=== PATIENT | male | born 1990 | race Caucasian/White ===

== ENCOUNTER 2018-05-24 12:53 | Emergency (ER) | payer MEDICAID ==
--- NOTE | 2018-05-24 13:22 | EDM.PDOC ---
ED HPI GENERAL MEDICAL PROBLEM - General Chief Complaint: Flank Pain Stated Complaint: SHARP LT SIDE PAIN Time Seen by Provider: 05/24/18 13:22 Source of Information: Reports: RN Notes Reviewed History Limitations: Reports: No Limitations - History of Present Illness INITIAL COMMENTS - FREE TEXT/NARRATIVE: Khoa presents today for complaints of LLQ and left flank pain since this morning. Pain worsens with movement is constant and sharp. Left Flank Pain Score (Numeric/FACES): 3 - Related Data Allergies Allergy/AdvReac Type Severity Reaction Status Date / Time No Known Allergies Allergy Verified 07/08/15 10:41 Home Meds: Home Meds Cholecalciferol (Vitamin D3) [Vitamin D3] 5,000 unit PO DAILY 05/24/18 [History] Citalopram [Citalopram HBr] 40 mg PO DAILY 05/24/18 [History] Lisdexamfetamine [Vyvanse] 30 mg PO DAILY 05/24/18 [History] RX: Fluconazole [Diflucan] 150 mg PO ASDIRECTED 05/24/18 [History] RX: Ketoconazole [Nizoral 2% Shampoo] 1 dose TOP ASDIRECTED 05/24/18 [History] RX: Zolpidem Tartrate 10 mg PO BEDTIME PRN 05/24/18 [History] Past Medical History - Past Health History Medical/Surgical History: Denies Medical/Surgical History Gastrointestinal History: Reports: Chronic Diarrhea Psychiatric History: Reports: Anxiety, Depression Dermatologic History: Reports: Other (See Below) Other Dermatologic History: tiea versicolor Social & Family History - Tobacco Use Smoking Status *Q: Never Smoker - Caffeine Use Caffeine Use: Reports: Coffee, Soda - Recreational Drug Use Recreational Drug Use: Yes Recreational Drug Type: Reports: Marijuana/Hashish ED ROS GENERAL - Review of Systems Review Of Systems: See Below Constitutional: Reports: Other (Noted patient drinks budweiser beer 2-3 times per week. Caffiene intake 1 pot of coffee per day. ). Denies: Fever, Chills, Malaise, Weakness HEENT: Reports: No Symptoms Respiratory: Reports: No Symptoms Cardiovascular: Reports: No Symptoms Endocrine: Reports: No Symptoms GI/Abdominal: Reports: Abdominal Pain, Diarrhea, Nausea, Stool Incontinence, Other (He reports chronic diarrhea for 7 years with incontinence. He reports up to 15 stools per day. He states he has been seeing Dr. Sánchez and has a colonoscopy pending on 05/31/18.). Denies: Black Stool, Bloody Stool, Constipation, Distension, Hematemesis, Hematochezia, Vomiting : Reports: Flank Pain. Denies: Hematuria, Pain, Urgency, Urinary Retention Musculoskeletal: Reports: No Symptoms Skin: Reports: No Symptoms Neurological: Reports: No Symptoms Psychiatric: Reports: No Symptoms Hematologic/Lymphatic: Reports: No Symptoms Immunologic: Reports: No Symptoms ED EXAM, GI/ABD - Physical Exam Exam: See Below Text/Narrative:: Khoa is an alert and oriented 28 year old male presenting with Left flank, LUQ , LLQ abdominal pain since this morning. Exam Limited By: No Limitations General Appearance: Alert, WD/WN, Mild Distress Eyes: Bilateral: Normal Appearance, EOMI Ears: Normal External Exam, Normal Canal, Hearing Grossly Normal, Normal TMs Nose: Normal Inspection, Normal Mucosa, No Blood Throat/Mouth: Normal Inspection, Normal Lips, Normal Gums, Normal Oropharynx, Normal Voice, No Airway Compromise Head: Atraumatic, Normocephalic Neck: Normal Inspection, Supple, Non-Tender, Full Range of Motion. No: Lymphadenopathy (R), Lymphadenopathy (L) Respiratory/Chest: No Respiratory Distress, Lungs Clear, Normal Breath Sounds, No Accessory Muscle Use, Chest Non-Tender Cardiovascular: Normal Peripheral Pulses, Regular Rate, Rhythm, No Edema, No Murmur, No Rub GI/Abdominal Exam: Normal Bowel Sounds, Soft, No Organomegaly, No Distention, No Mass, Tender (Tenderness noted to LUQ, LLQ, Left flank). No: Guarding, Rigid , Rebound Back Exam: Normal Inspection, Full Range of Motion. No: CVA Tenderness (R), CVA Tenderness (L) Extremities: Normal Inspection, Normal Range of Motion, Non-Tender, No Pedal Edema, Normal Capillary Refill Neurological: Alert, Oriented, CN II-XII Intact, Normal Cognition, Normal Gait, Normal Reflexes, No Motor/Sensory Deficits Psychiatric: Normal Affect, Normal Mood Skin Exam: Warm, Dry, Intact, Normal Color, No Rash Lymphatic: No Adenopathy Course - Vital Signs Last Recorded V/S: Last Vital Signs Temp Pulse 77 05/24/18 15:14 Resp 16 05/24/18 15:14 BP 147/76 H 05/24/18 15:14 Pulse Ox 98 05/24/18 15:14 - Orders/Labs/Meds Orders: Active Orders 24 hr Category Date Time Status Abdomen Pelvis w wo Cont [CT] Stat Exams 05/24/18 14:55 Taken Saline Lock Insert [OM.PC] Routine Oth 05/24/18 13:37 Ordered Bladder scan showed 20ml present. Labs: Laboratory Tests 05/24/18 05/24/18 05/24/18 Range/Units 13:49 13:49 14:32 WBC 4.4 L (4.5-11.0) K/uL RBC 4.76 (4.30-5.90) M/uL Hgb 14.6 (12.0-15.0) g/dL Hct 41.0 (40.0-54.0) % MCV 86 (80-98) fL MCH 31 (27-31) pg MCHC 36 (32-36) % Plt Count 259 (150-400) K/uL Neut % (Auto) 51 (36-66) % Lymph % (Auto) 35 (24-44) % Butler % (Auto) 13 H (2-6) % Eos % (Auto) 1 L (2-4) % Baso % (Auto) 0 (0-1) % Sodium 138 L (140-148) mmol/L Potassium 4.2 (3.6-5.2) mmol/L Chloride 102 (100-108) mmol/L Carbon Dioxide 27 (21-32) mmol/L Anion Gap 13.2 (5.0-14.0) mmol/L BUN 16 (7-18) mg/dL Creatinine 1.3 (0.8-1.3) mg/dL Est Cr Clr Drug Dosing TNP Estimated GFR (MDRD) > 60 (>60) Glucose 90 (74-106) mg/dL Calcium 9.1 (8.5-10.1) mg/dL Total Bilirubin 1.3 H (0.2-1.0) mg/dL AST 25 (15-37) U/L ALT 33 (12-78) U/L Alkaline Phosphatase 57 (46-116) U/L Total Protein 7.7 (6.4-8.2) g/dL Albumin 4.0 (3.4-5.0) g/dL Globulin 3.7 H (2.3-3.5) g/dL Albumin/Globulin Ratio 1.1 L (1.2-2.2) Urine Color Yellow Urine Appearance Slightly cloudy Urine pH 6.0 (4.5-8.0) Ur Specific [place] 1.025 (1.008-1.030) Urine Protein Negative (NEGATIVE) mg/dL Urine Glucose (UA) Normal (NEGATIVE) mg/dL Urine Ketones Negative (NEGATIVE) mg/dL Urine Occult Blood Negative (NEGATIVE) Urine Nitrite Negative (NEGAITVE) Urine Bilirubin Negative (NEGATIVE) Urine Urobilinogen Normal (NORMAL) mg/dL Ur Leukocyte Esterase Negative (NEGATIVE) Urine RBC Not seen (0-5) Urine WBC 0-5 (0-5) Ur Epithelial Cells Not seen Amorphous Sediment Few Urine Bacteria Not seen Urine Mucus Many Patient lab work reviewed with him, all his questions answered. We will do a CT of abdomen and pelvis with and without contrast due to nature of pain and chronic diarrhea. Radiologist and Dr. Aparicio in agreement with plan. Meds: Medications Discontinued Medications Generic Name Dose Route Start Last Admin Trade Name Freq PRN Reason Stop Dose Admin Hydromorphone HCl 0.5 mg 05/24/18 13:37 05/24/18 14:05 Dilaudid IVPUSH 05/24/18 13:38 0.5 mg ONETIME ONE Administration Sodium Chloride 1,000 mls @ 1,000 mls/hr 05/24/18 13:37 05/24/18 14:01 Normal Saline IV 05/24/18 14:36 1,000 mls/hr .BOLUS ONE Administration Sodium Chloride 85 mls @ 3 mls/sec 05/24/18 15:26 05/24/18 15:28 Normal Saline IV 05/24/18 15:27 3 mls/sec ONETIME ONE Administration Iopamidol 150 ml 05/24/18 15:30 05/24/18 15:28 Isovue-300 (61%) IV 150 ml . DIRECTED BRIAN Administration Ondansetron HCl 4 mg 05/24/18 13:37 05/24/18 14:03 Zofran IVPUSH 05/24/18 13:38 4 mg ONETIME ONE Administration Sodium Chloride 10 ml 05/24/18 13:37 Saline Flush FLUSH ASDIRECTED PRN Keep Vein Open - Radiology Interpretation CT Results Date: 05/24/18 (CT abdomen and pelvis with and without contrast impression: No acute abnormality of abdomen and pelvis. Scattered colonic diverticulosis with no evidence of acute diverticulitis. ) - Re-Assessments/Exams Free Text/Narrative Re-Assessment/Exam: 05/24/18 15:50 CT scan reviewed with patient, all his questions answered. He will be discharged to home. Departure - Departure Time of Disposition: 16:26 Disposition: Home, Self-Care 01 Condition: Good Clinical Impression: Abdominal pain, Diverticulosis - Discharge Information *PRESCRIPTION DRUG MONITORING PROGRAM REVIEWED*: No *COPY OF PRESCRIPTION DRUG MONITORING REPORT IN PATIENT J LUIS: No Instructions: Abdominal Pain, Adult Referrals: Marjan Sánchez MD [Primary Care Provider] - Forms: ED Department Discharge Additional Instructions: You have been evaluated and treated for abdominal/left flank pain. CT scans does not show any acute findings. The CT scan does show that you have diverticulosis. It would be best for you to cut down on your caffeine intake. Keep yourself hydrated with water and powerade. Stop use of alcohol. Eat a regular diet. Follow up with your scheduled colonoscopy. Follow up with your primary provider in 7 to 14 days for a recheck. Return to the emergency room for worsening, issues or concerns. - My Orders Last 24 Hours: My Active Orders 05/24/18 13:37 Saline Lock Insert [OM.PC] Routine 05/24/18 14:55 Abdomen Pelvis w wo Cont [CT] Stat - Assessment/Plan Last 24 Hours: My Active Orders 05/24/18 13:37 Saline Lock Insert [OM.PC] Routine 05/24/18 14:55 Abdomen Pelvis w wo Cont [CT] Stat Plan: Patient evaluated and treated for abdominal/left flank pain. CT scans does not show any acute findings. The CT scan does show diverticulosis. It would be best to cut down on your caffeine intake. Keep hydrated with water and powerade. Stop use of alcohol. Eat a regular diet. Follow up with scheduled colonoscopy. Follow up with primary provider in 7 to 14 days for a recheck. Return to the emergency room for worsening, issues or concerns.
[2018-05-24] MEDS ORDERED: Sodium Chloride 0.9% 10 ML Syringe FLUSH PRN (13:37)
[2018-05-24] MEDS ORDERED: Ondansetron 4 MG/2 ML SDV IVPUSH ONE (13:37)
[2018-05-24] MEDS ORDERED: HYDROmorphone 0.5 MG/0.5 ML Syringe IVPUSH ONE (13:37)
[2018-05-24] MEDS ORDERED: Sodium Chloride 0.9% 1,000 ML IV ONE (13:37)
[2018-05-24 15:16] VITALS: BP 147/76
[2018-05-24] MEDS ORDERED: Iopamidol 612 MG/ML 150 ML Bottle IV SCH (15:30)
== END 2018-05-24 16:49 | disposition home or self-care (01) ==
LOC: JP.ED 12:53
DX: K57.90 Diverticulosis of intestine, part unspecified, without perforation or abscess without bleeding (principal); F41.9 Anxiety disorder, unspecified; F32.9 Major depressive disorder, single episode, unspecified; Z79.899 Other long term (current) drug therapy
CPT/HCPCS: 36415; 74178; 80053; 81001; 85025; 96361; 96374; 96375; 99284; J1170; J2405; J7030

== ENCOUNTER 2018-05-31 06:25 | Day surgery (SDC) | payer MEDICAID ==
[2018-05-31] MEDS ORDERED: Lactated Ringers 1,000 ML IV SCH (07:00)
[2018-05-31] MEDS ORDERED: Midazolam 1 MG/ML 2 ML SDV ONE (07:29)
[2018-05-31] MEDS ORDERED: fentaNYL 100 MCG/2 ML SDV ONE (07:29)
[2018-05-31] MEDS ORDERED: Propofol 200 MG/20 ML SDV ONE ×2 (07:29→07:59)
--- NOTE | 2018-05-31 08:42 | OR ---
DATE OF PROCEDURE: 05/31/2018 PREOPERATIVE DIAGNOSIS: Chronic diarrhea. POSTOPERATIVE DIAGNOSIS: Chronic diarrhea. PROCEDURE PERFORMED: Colonoscopy to the cecum with random colonic biopsies. ANESTHESIA: IV anesthesia with monitored anesthesia care. INDICATIONS: This 28-year-old white male is referred for a colonoscopy because of chronic diarrhea. He says he has had diarrhea on and off for 7 years. I counseled him for the procedure including risks and alternatives and gave his informed consent to proceed. DESCRIPTION OF PROCEDURE: The patient was placed in the left lateral decubitus position. IV anesthesia was administered by the Anesthesia Service. Time-out was held. A rectal exam was performed, which was unremarkable. The flexible video Olympus colonoscope was introduced through his anus, up his rectum, out his colon and all the way to the cecum. Once the cecum was reached, the scope was slowly withdrawn examining the mucosa throughout. No mucosal abnormalities were noted. We did obtain random colonic biopsies throughout his entire colon. The scope was retroflexed in the rectum with the distal rectum appearing unremarkable. The scope was straightened and removed. He tolerated the procedure well. Ken Toro MD /[id number]
[2018-05-31 09:34] VITALS: BP 122/69
== END 2018-05-31 09:30 | disposition home or self-care (01) ==
LOC: JP.SDS 06:25
PROVIDERS: ATTEND Surgery
DX: K52.9 Noninfective gastroenteritis and colitis, unspecified (principal)
CPT/HCPCS: 45380; J2250; J2704; J3010; J7120; 88305

== ENCOUNTER 2018-10-14 11:31 | Emergency (ER) | payer MEDICAID ==
[2018-10-14 11:45] VITALS: BP 169/54
--- NOTE | 2018-10-14 12:07 | EDM.PDOC ---
ED HPI GENERAL MEDICAL PROBLEM - General Chief Complaint: Gastrointestinal Problem Stated Complaint: RED BLOODY DIARRHEA/ Time Seen by Provider: 10/14/18 11:56 Source of Information: Reports: Patient, RN Notes Reviewed History Limitations: Reports: No Limitations - History of Present Illness INITIAL COMMENTS - FREE TEXT/NARRATIVE: 28-year-old gentleman presents emergency department today with bright red blood per rectum, he recently had a colonoscopy about 3 months ago with biopsies, he states no pathology was discovered, does have a history of irritable bowel syndrome. He does admit to constipation he did have a hard stool this morning which was painful and that's when he noticed the blood little bit of blood in the stool as well as when he wiped. He has no symptoms of lightheadedness or feeling like he is given a pass out Abdominal Pain Score (Numeric/FACES): 3 - Related Data Allergies Allergy/AdvReac Type Severity Reaction Status Date / Time No Known Allergies Allergy Verified 10/14/18 11:40 Home Meds: Home Meds Cholecalciferol (Vitamin D3) [Vitamin D3] 5,000 unit PO DAILY 05/24/18 [History] Citalopram [Citalopram HBr] 40 mg PO DAILY 05/24/18 [History] Zolpidem Tartrate 10 mg PO BEDTIME PRN 05/24/18 [History] Selenium Sulfide [Selenium Sulfide 2.5% Lotion] 10 ml TOP WEEKLY 05/29/18 [ History] Divalproex Sodium [Divalproex Sodium ER] 500 mg PO DAILY 05/31/18 [History] Ibuprofen [Motrin] 1,000 mg PO ASDIRECTED 05/31/18 [History] Ondansetron [Zofran ODT] 4 mg PO Q6H PRN #7 tab.dis 10/09/18 [Rx] Past Medical History Cardiovascular History: Reports: Heart Murmur Gastrointestinal History: Reports: Chronic Diarrhea, GERD Musculoskeletal History: Reports: Other (See Below) Other Musculoskeletal History: scolosis Neurological History: Reports: Concussion Psychiatric History: Reports: Anxiety, Depression, Mood Swings, Panic Attack Endocrine/Metabolic History: Reports: Obesity/BMI 30+ Hematologic History: Reports: Other (See Below) Other Hematologic History: vit d Dermatologic History: Reports: Other (See Below) Other Dermatologic History: tiea versicolor - Past Surgical History Cardiovascular Surgical History: Reports: None GI Surgical History: Reports: Colonoscopy, EGD Endocrine Surgical History: Reports: None Neurological Surgical History: Reports: None Musculoskeletal Surgical History: Reports: None Dermatological Surgical History: Reports: None Social & Family History - Family History Family Medical History: Noncontributory - Tobacco Use Smoking Status *Q: Former Smoker Used Tobacco, but Quit: No Month/Year Tobacco Last Used: 2015 Second Hand Smoke Exposure: No - Caffeine Use Caffeine Use: Reports: None - Alcohol Use Days Per Week of Alcohol Use: 2 Number of Drinks Per Day: 12 Total Drinks Per Week: 24 - Recreational Drug Use Recreational Drug Use: Yes Drug Use in Last 12 Months: Yes Recreational Drug Type: Reports: Marijuana/Hashish Recreational Drug Use Frequency: Daily ED ROS GENERAL - Review of Systems Review Of Systems: See Below Constitutional: Reports: No Symptoms HEENT: Reports: No Symptoms Respiratory: Reports: No Symptoms Cardiovascular: Reports: No Symptoms GI/Abdominal: Reports: Bloody Stool ED EXAM, GI/ABD - Physical Exam Exam: See Below Exam Limited By: No Limitations General Appearance: Alert, WD/WN, No Apparent Distress Respiratory/Chest: No Respiratory Distress Rectal (Males) Exam: Normal Rectal Tone, Rectal Fissure, Tenderness. No: Bloody Stool, Hemorrhoids Course - Vital Signs Last Recorded V/S: Last Vital Signs Temp 97.3 F 10/14/18 11:44 Pulse 74 10/14/18 11:44 Resp 16 10/14/18 11:44 BP 169/54 H 10/14/18 11:44 Pulse Ox 100 10/14/18 11:44 Departure - Departure Time of Disposition: 12:06 Disposition: Home, Self-Care 01 Condition: Good Clinical Impression: Rectal fissure - Discharge Information Referrals: PCP,None [Primary Care Provider] - Additional Instructions: Increase fruit and vegetable intake, recommend stool softeners and sitz baths, Please followup with your primary care provider in 5-7 days if not better, please call return to the emergency department with worsening of symptoms. - Assessment/Plan Plan: Assessment Acuity = acute Site and laterality = small rectal fissure Etiology = secondary to constipation and hard stool Manifestations = none Location of injury = Home Lab values = none Plan elected treat empirically sits baths and work on his constipation, he is going to use stool softeners push the fruits and vegetables, follow-up with primary care 5-7 days if no improvement This note was dictated using [employer] voice recognition software please call with any questions on syntax or grammar.
== END 2018-10-14 12:14 | disposition home or self-care (01) ==
LOC: JP.ED 11:31
DX: K60.2 Anal fissure, unspecified (principal); F41.9 Anxiety disorder, unspecified; F32.9 Major depressive disorder, single episode, unspecified; Z87.891 Personal history of nicotine dependence; Z79.899 Other long term (current) drug therapy
CPT/HCPCS: 99284

== ENCOUNTER 2018-10-29 11:38 | Emergency (ER) | payer MEDICAID ==
[2018-10-29 12:25] VITALS: BP 132/69
[2018-10-29] MEDS ORDERED: Ketorolac 60 MG/2 ML SDV IM ONE (13:09)
[2018-10-29] MEDS ORDERED: Cyclobenzaprine 10 MG Tab PO ONE (13:09)
--- NOTE | 2018-10-29 13:13 | EDM.PDOC ---
ED HPI GENERAL MEDICAL PROBLEM - General Chief Complaint: Back Pain or Injury Stated Complaint: FELL DOWN STAIRS Time Seen by Provider: 10/29/18 13:06 Source of Information: Reports: Patient, Family, RN Notes Reviewed History Limitations: Reports: No Limitations - History of Present Illness INITIAL COMMENTS - FREE TEXT/NARRATIVE: 28-year-old gentleman presents to the emergency department today following a fall at home, he was shoveling the steps when he slipped on the ice and then fell down several steps landing initially on his buttocks and then sliding to the bottom of the stairs he is complaining of low back pain as well as mid thoracic pain is also muscle aches he states he might of had a loss of consciousness very briefly some 5 seconds no nausea vomiting, Back Pain Score (Numeric/FACES): 8 - Related Data Allergies Allergy/AdvReac Type Severity Reaction Status Date / Time No Known Allergies Allergy Verified 10/29/18 12:58 Home Meds: Home Meds Cholecalciferol (Vitamin D3) [Vitamin D3] 5,000 unit PO DAILY 05/24/18 [History] Citalopram [Citalopram HBr] 40 mg PO DAILY 05/24/18 [History] Zolpidem Tartrate 10 mg PO BEDTIME PRN 05/24/18 [History] Selenium Sulfide [Selenium Sulfide 2.5% Lotion] 10 ml TOP WEEKLY 05/29/18 [ History] Divalproex Sodium [Divalproex Sodium ER] 500 mg PO DAILY 05/31/18 [History] Ibuprofen [Motrin] 1,000 mg PO ASDIRECTED 05/31/18 [History] Ondansetron [Zofran ODT] 4 mg PO Q6H PRN #7 tab.dis 10/09/18 [Rx] Past Medical History Cardiovascular History: Reports: Heart Murmur Gastrointestinal History: Reports: Chronic Diarrhea, GERD Musculoskeletal History: Reports: Other (See Below) Other Musculoskeletal History: scolosis Neurological History: Reports: Concussion Psychiatric History: Reports: Anxiety, Depression, Mood Swings, Panic Attack Endocrine/Metabolic History: Reports: Obesity/BMI 30+ Hematologic History: Reports: Other (See Below) Other Hematologic History: vit d Dermatologic History: Reports: Other (See Below) Other Dermatologic History: tiea versicolor - Past Surgical History GI Surgical History: Reports: Colonoscopy, EGD Social & Family History - Family History Family Medical History: Noncontributory - Tobacco Use Smoking Status *Q: Never Smoker - Caffeine Use Caffeine Use: Reports: None - Recreational Drug Use Recreational Drug Use: Yes Recreational Drug Type: Reports: Marijuana/Hashish Recreational Drug Use Frequency: Daily ED ROS GENERAL - Review of Systems Review Of Systems: See Below Constitutional: Reports: No Symptoms HEENT: Reports: No Symptoms Respiratory: Reports: No Symptoms Cardiovascular: Reports: No Symptoms GI/Abdominal: Denies: Nausea, Vomiting : Reports: No Symptoms Musculoskeletal: Reports: Neck Pain, Shoulder Pain, Back Pain, Muscle Stiffness Skin: Reports: No Symptoms Neurological: Reports: No Symptoms ED EXAM,LOWER BACK PAIN/INJURY - Physical Exam Exam: See Below Text/Narrative:: Examination of the spine he is tender approximately T5-T6 region spinally and tender L4-L5 region spinally no significant paraspinal tenderness, is no tenderness shoulders elbows wrists bilaterally pelvic rock's is negative no tenderness to the knees or ankles bilaterally Exam Limited By: No Limitations General Appearance: Alert, WD/WN, No Apparent Distress Neck: Normal Inspection, Supple, Full Range of Motion, Tender Lateral. No: Tender Midline Respiratory/Chest: No Respiratory Distress, Lungs Clear, Normal Breath Sounds, No Accessory Muscle Use Cardiovascular: Regular Rate, Rhythm, No Murmur GI/Abdominal: Soft, Non-Tender Course - Vital Signs Last Recorded V/S: Last Vital Signs Temp 95.4 F 10/29/18 12:57 Pulse 56 L 10/29/18 12:57 Resp 16 10/29/18 12:57 BP 132/69 10/29/18 12:57 Pulse Ox 98 10/29/18 12:57 - Orders/Labs/Meds Orders: Active Orders 24 hr Category Date Time Status Lumbar Spine 2 or 3V [CR] Stat Exams 10/29/18 13:08 Taken Thoracic Spine 3V [CR] Stat Exams 10/29/18 13:08 Taken Meds: Medications Discontinued Medications Generic Name Dose Route Start Last Admin Trade Name Freq PRN Reason Stop Dose Admin Cyclobenzaprine HCl 10 mg 10/29/18 13:09 10/29/18 13:25 Flexeril PO 10/29/18 13:10 10 mg ONETIME ONE Administration Fentanyl 50 mcg 10/29/18 14:27 10/29/18 14:34 Sublimaze IM 10/29/18 14:28 50 mcg ONETIME ONE Administration Ketorolac Tromethamine 60 mg 10/29/18 13:09 10/29/18 13:25 Toradol IM 10/29/18 13:10 60 mg ONETIME ONE Administration Departure - Departure Time of Disposition: 14:58 Disposition: Home, Self-Care 01 Clinical Impression: Contusion of back Qualifiers: Encounter type: initial encounter Laterality: unspecified laterality Qualified Code(s): S20.229A - Contusion of unspecified back wall of thorax, initial encounter - Discharge Information Referrals: Mini Quesada MD [Primary Care Provider] - Forms: ED Department Discharge Additional Instructions: Use ibuprofen for baseline pain control, use hydrocodone for breakthrough pain, Please followup with your primary care provider in 3-5 days if not better, please call return to the emergency department with worsening of symptoms. - My Orders Last 24 Hours: My Active Orders 10/29/18 13:08 Lumbar Spine 2 or 3V [CR] Stat Thoracic Spine 3V [CR] Stat - Assessment/Plan Last 24 Hours: My Active Orders 10/29/18 13:08 Lumbar Spine 2 or 3V [CR] Stat Thoracic Spine 3V [CR] Stat Plan: Assessment Acuity = acute Site and laterality = contusion back lumbar thorax Etiology = secondary to a fall Manifestations = pain Location of injury = Home Lab values = lumbar and thoracic films I did review films myself I cannot appreciate any acute process, the official read from radiology is pending Plan He had good relief with combination fentanyl Toradol plan is discharge home with hydrocodone 5/325 one tab by mouth 3 times a day when necessary total #10 follow-up primary care 3-5 days if not better This note was dictated using [employer] recognition software please call with any questions on syntax or grammar.
[2018-10-29] MEDS ORDERED: fentaNYL 100 MCG/2 ML SDV IM ONE (14:27)
--- NOTE | 2018-10-29 15:05 | CRLCR ---
HISTORY: Status post fall with L4 pain. COMPARISON: Report of the previous CT of the abdomen and pelvis from 05/24/2018 FINDINGS: The lumbar spine was examined in the standing position with AP and lateral views for a total of two views. There is minimal scoliosis of the upper lumbar spine convex towards the left with the apex at the L2 level. There is no sign of fracture or subluxation. The vertebral bodies are normal in height and they are in anatomic alignment. The disc spaces are normal in height as well. The visualized bony pelvis and bowel gas pattern are normal in appearance. IMPRESSION: Minimal scoliosis of the upper lumbar spine convex towards the left. Otherwise normal lumbar spine. Dictated by Hakan De La Fuente MD @ Oct 29 2018 3:02PM Signed by Dr. Hakan De La Fuente @ Oct 29 2018 3:04PM
--- NOTE | 2018-10-29 15:07 | CRLCR ---
INDICATION: Pain after fall COMPARISON: None available. TECHNIQUE: AP and lateral views of the thoracic spine were obtained along with a cross-table swimmer`s view of the cervicothoracic junction for a total of three views. FINDINGS: There is no sign of fracture or subluxation. The intervertebral discs are normal in height. The vertebral bodies are normal in height and are in anatomic alignment. The visualized portions of the chest are normal in appearance. IMPRESSION: Normal thoracic spine. Dictated by Hakan De La Fuente MD @ Oct 29 2018 3:04PM Signed by Dr. Hakan De La Fuente @ Oct 29 2018 3:05PM
== END 2018-10-29 15:18 | disposition home or self-care (01) ==
LOC: JP.ED 11:38
DX: S20.229A Contusion of unspecified back wall of thorax, initial encounter (principal); K21.9 Gastro-esophageal reflux disease without esophagitis; F41.9 Anxiety disorder, unspecified; F32.9 Major depressive disorder, single episode, unspecified; Z79.899 Other long term (current) drug therapy; W00.1XXA Fall from stairs and steps due to ice and snow, initial encounter
CPT/HCPCS: 72072; 72100; 96372; 99284-25; A9270-GY; J1885; J3010

== ENCOUNTER 2018-11-01 10:45 | Emergency (ER) | payer MEDICAID ==
[2018-11-01] MEDS ORDERED: HYDROmorphone 1 MG/ML Syringe IM ONE (11:36)
--- NOTE | 2018-11-01 11:49 | EDM.PDOC ---
ED HPI GENERAL MEDICAL PROBLEM - General Chief Complaint: Back Pain or Injury Stated Complaint: SENT FROM CLINIC Time Seen by Provider: 11/01/18 11:20 Source of Information: Reports: Patient, Family History Limitations: Reports: No Limitations - History of Present Illness INITIAL COMMENTS - FREE TEXT/NARRATIVE: 28-year-old male who slipped on the stairs 5 days ago injuring his back and neck. He has been seen 3 times since, yesterday had a CT of his neck which was negative. Thoracic and lumbar spine done 3 days ago was normal. He went back into the clinic today because he is in such severe pain, has now developed abdominal pain and vomiting. He took his last Vicodin last night. The provider at the clinic felt that he may have some meningeal irritation so sent him to the emergency room. Onset: Sudden (Pain started after falling 4 days ago) Severity: Severe (Patient is tearful) Associated Symptoms: Reports: Fever/Chills, Nausea/Vomiting, Weakness. Denies: Confusion, Cough, Shortness of Breath Neck Pain Score (Numeric/FACES): 8 Abdomen Pain Score (Numeric/FACES): 4 - Related Data Allergies Allergy/AdvReac Type Severity Reaction Status Date / Time No Known Allergies Allergy Verified 11/01/18 11:17 Home Meds: Home Meds Cholecalciferol (Vitamin D3) [Vitamin D3] 5,000 unit PO DAILY 05/24/18 [History] Citalopram [Citalopram HBr] 40 mg PO DAILY 05/24/18 [History] Zolpidem Tartrate 10 mg PO BEDTIME PRN 05/24/18 [History] Selenium Sulfide [Selenium Sulfide 2.5% Lotion] 10 ml TOP WEEKLY 05/29/18 [ History] Divalproex Sodium [Divalproex Sodium ER] 500 mg PO DAILY 05/31/18 [History] Ondansetron [Zofran ODT] 4 mg PO Q6H PRN #7 tab.dis 10/09/18 [Rx] Hydrocodone/Acetaminophen [Vicodin 5-300 mg Tablet] 1 tab PO Q6HR PRN 11/01/18 [ History] Past Medical History Cardiovascular History: Reports: Heart Murmur Gastrointestinal History: Reports: Chronic Diarrhea, GERD Musculoskeletal History: Reports: Other (See Below) Other Musculoskeletal History: scolosis Neurological History: Reports: Concussion Psychiatric History: Reports: Anxiety, Depression, Mood Swings, Panic Attack Endocrine/Metabolic History: Reports: Obesity/BMI 30+ Hematologic History: Reports: Other (See Below) Other Hematologic History: vit d Dermatologic History: Reports: Other (See Below) Other Dermatologic History: tiea versicolor - Past Surgical History Head Surgeries/Procedures: Reports: None GI Surgical History: Reports: Colonoscopy, EGD Social & Family History - Family History Family Medical History: Noncontributory - Tobacco Use Smoking Status *Q: Never Smoker - Caffeine Use Caffeine Use: Reports: None - Recreational Drug Use Recreational Drug Use: Yes Recreational Drug Type: Reports: Marijuana/Hashish Recreational Drug Use Frequency: Weekly ED ROS GENERAL - Review of Systems Review Of Systems: See Below Constitutional: Reports: Fever, Decreased Appetite HEENT: Reports: No Symptoms Respiratory: Denies: Shortness of Breath, Cough Cardiovascular: Denies: Chest Pain GI/Abdominal: Reports: Abdominal Pain, Nausea, Vomiting, Other (Has chronic irritable bowel syndrome) : Reports: No Symptoms Musculoskeletal: Reports: Neck Pain, Back Pain Skin: Denies: Bruising Neurological: Reports: Headache Psychiatric: Reports: Anxiety, Depression ED EXAM, GENERAL - Physical Exam Exam: See Below Exam Limited By: No Limitations General Appearance: Alert, Moderate Distress (Patient is tearful and has pain with any range of motion or movement) Head: Atraumatic Respiratory/Chest: No Respiratory Distress, Lungs Clear Cardiovascular: Regular Rate, Rhythm GI/Abdominal: Tender (Diffusely tender to palpation, mild guarding) Back Exam: Paraspinal Tenderness (Tenderness is present throughout the entire spine, difficult to examine because even the lightest palpation causes him to wince and cry.) Psychiatric: Anxious, Tearful Skin Exam: Warm, Dry, Other (No bruising or abrasions are seen) Course - Vital Signs Last Recorded V/S: Last Vital Signs Temp 99.8 F 11/01/18 13:06 Pulse 91 11/01/18 13:06 Resp 16 11/01/18 13:06 BP 113/53 L 11/01/18 13:06 Pulse Ox 95 11/01/18 13:06 - Orders/Labs/Meds Labs: Laboratory Tests 11/01/18 11/01/18 Range/Units 11:46 11:46 WBC 6.4 (4.5-11.0) K/uL RBC 5.35 (4.30-5.90) M/uL Hgb 15.9 H (12.0-15.0) g/dL Hct 46.6 (40.0-54.0) % MCV 87 (80-98) fL MCH 30 (27-31) pg MCHC 34 (32-36) % Plt Count 238 (150-400) K/uL Neut % (Auto) 85 H (36-66) % Lymph % (Auto) 5 L (24-44) % Person % (Auto) 9 H (2-6) % Eos % (Auto) 1 L (2-4) % Baso % (Auto) 0 (0-1) % Sodium 143 (140-148) mmol/L Potassium 4.4 (3.6-5.2) mmol/L Chloride 103 (100-108) mmol/L Carbon Dioxide 29 (21-32) mmol/L Anion Gap 11.2 (5.0-14.0) mmol/L BUN 14 (7-18) mg/dL Creatinine 1.2 (0.8-1.3) mg/dL Est Cr Clr Drug Dosing 100.87 mL/min Estimated GFR (MDRD) > 60 (>60) Glucose 103 (74-106) mg/dL Calcium 9.0 (8.5-10.1) mg/dL Total Bilirubin 1.2 H (0.2-1.0) mg/dL AST 19 (15-37) U/L ALT 30 (12-78) U/L Alkaline Phosphatase 67 (46-116) U/L Total Protein 7.8 (6.4-8.2) g/dL Albumin 3.8 (3.4-5.0) g/dL Globulin 4.0 H (2.3-3.5) g/dL Albumin/Globulin Ratio 1.0 L (1.2-2.2) Lipase 81 (73-393) U/L Meds: Medications Discontinued Medications Generic Name Dose Route Start Last Admin Trade Name Freq PRN Reason Stop Dose Admin Hydromorphone HCl 1 mg 11/01/18 11:36 11/01/18 11:44 Dilaudid IM 11/01/18 11:37 1 mg ONETIME ONE Administration Sodium Chloride 1,000 mls @ 1,000 mls/hr 11/01/18 12:15 02/22/19 12:22 Normal Saline IV 1,000 mls/hr ASDIRECTED BRIAN Administration Sodium Chloride 85 mls @ 3.5 mls/sec 11/01/18 12:30 11/01/18 12:50 Normal Saline IV 11/01/18 12:31 3.5 mls/sec ASDIRECTED BRIAN Administration Iopamidol 150 ml 11/01/18 12:30 11/01/18 12:50 Isovue-300 (61%) IV 11/02/18 12:31 150 ml . DIRECTED PRN Administration RADIOLOGY EXAM Ondansetron HCl 4 mg 11/01/18 12:04 11/01/18 12:25 Zofran IVPUSH 11/01/18 12:05 4 mg ONETIME ONE Administration Sodium Chloride 10 ml 11/01/18 12:30 11/01/18 12:50 Saline Flush FLUSH 11/01/18 12:31 10 ml ONETIME PRN Administration per radiology protocol - Re-Assessments/Exams Free Text/Narrative Re-Assessment/Exam: 11/01/18 11:57 This patient has already had x-rays of his thoracic and lumbar spine as well as CT of his neck. CBC CMP were obtained, he was given 1 mg of Dilaudid IM. Because of the abdominal pain and fever we will likely have to CT his abdomen and pelvis with contrast to rule out a splenic injury or renal injury. 11/01/18 13:29 CBC was normal, patient became more comfortable after his Dilaudid. CT scan of the abdomen and pelvis with IV contrast was completely normal including the spine. He was reassured, given a note for work for the weekend and given 15 additional hydrocodone for pain control. He needs to increase activity as tolerated. Recheck next week if not improving satisfactorily. 11/01/18 16:15 Patient asked for Percocet instead of hydrocodone but because there are no findings, no fractures and no evidence of injury such as bruising I think hydrocodone's efficient enough along with anti-inflammatories. He also asked for some Zofran, he was supplied with 5 doses. Departure - Departure Time of Disposition: 14:07 Disposition: Home, Self-Care 01 Condition: Fair Clinical Impression: Contusion of back Qualifiers: Encounter type: initial encounter Laterality: unspecified laterality Qualified Code(s): S20.229A - Contusion of unspecified back wall of thorax, initial encounter - Discharge Information Instructions: Contusion, [id number] Referrals: PCP,None [Primary Care Provider] - Forms: ED Department Discharge Care Plan Goals: Take a regular dose of ibuprofen or naproxen, and add hydrocodone as needed for extra pain control. Increase activity as tolerated and if unable to return to work on Sunday recheck at the clinic. Return sooner if worsening such as difficulty breathing, higher fever or confusion.
[2018-11-01] MEDS ORDERED: Ondansetron 4 MG/2 ML SDV IVPUSH ONE (12:04)
[2018-11-01] MEDS ORDERED: Sodium Chloride 0.9% 1,000 ML IV SCH (12:15)
[2018-11-01] MEDS ORDERED: Sodium Chloride 0.9% 10 ML Syringe FLUSH PRN (12:30)
[2018-11-01] MEDS ORDERED: Iopamidol 612 MG/ML 150 ML Bottle IV PRN (12:30)
[2018-11-01 13:07] VITALS: BP 113/53
--- NOTE | 2018-11-01 13:21 | CRLCT ---
INDICATION: Back pain and fever. History of back trauma. COMPARISON: CT of the abdomen and pelvis without contrast from 05/24/2018 TECHNIQUE: CT examination of the abdomen and pelvis was performed with the uneventful intravenous administration of 100 cc of Isovue-300 while 3 mm thick axial sections were obtained from the lung bases through the pubic symphysis. Oral contrast was not administered. Please note that all CT scans at this facility use dose modulation, iterative reconstruction, and/or weight-based dosing when appropriate to reduce radiation dose to as low as reasonably achievable. FINDINGS: In the abdomen, the liver, spleen, pancreas, and adrenals are normal in appearance. The kidneys are normal in appearance. There is normal renal enhancement with nothing seems to suggest pyelonephritis. The gallbladder is normal in appearance. The abdominal aorta is normal in caliber with no sign of dilatation. There is no sign of retroperitoneal mass or adenopathy. The stomach, loops of small bowel, and colon in the abdomen are normal in appearance. In the pelvis, the appendix is normal in appearance with no sign of inflammatory process. The loops of small bowel and colon in the pelvis are normal in appearance. The prostate is normal in appearance. The urinary bladder is normal in appearance. There is no sign of pelvic or inguinal mass or adenopathy. The lung bases are clear. There is minimal scoliosis of the lumbar spine convex towards the left. There is no sign of any osseous injury to correlate with a history of trauma to the back. The osseous structures are otherwise normal in appearance for the patient`s age. IMPRESSION: Nothing seen to correlate with the history of back pain and fever. No sign of pyelonephritis or renal abscess. No sign of hydronephrosis or hydroureter. No sign of any osseous traumatic injury. Normal CT of the abdomen with contrast. Normal CT of the pelvis with contrast. Please note that all CT scans at this facility use dose modulation, iterative reconstruction, and/or weight-based dosing when appropriate to reduce radiation dose to as low as reasonably achievable. Dictated by Hakan De La Fuente MD @ Nov 01 2018 1:11PM Signed by Dr. Hakan De La Fuente @ Nov 01 2018 1:20PM
== END 2018-11-01 14:09 | disposition home or self-care (01) ==
LOC: JP.ED 10:45
DX: S20.229A Contusion of unspecified back wall of thorax, initial encounter (principal); F41.9 Anxiety disorder, unspecified; F32.9 Major depressive disorder, single episode, unspecified; W10.8XXA Fall (on) (from) other stairs and steps, initial encounter; Z79.899 Other long term (current) drug therapy
CPT/HCPCS: 36415; 74177; 80053; 83690; 85025; 87804; 96361; 96372; 96374; 99284; J1170; J2405; J7030

== ENCOUNTER 2018-12-13 22:50 | Emergency (ER) | payer MEDICAID ==
[2018-12-13 23:09] VITALS: BP 131/56
[2018-12-13] MEDS ORDERED: Acetaminophen/HYDROcodone 325-5 MG Tab PO ONE (23:51)
[2018-12-13] MEDS ORDERED: Rabies Immune Globulin PF 150 Units/ML 2 ML SDV IM ONE (23:59)
[2018-12-13] MEDS ORDERED: Rabies Vaccine (Avian) 2.5 Unit Inj Kit IM ONE (23:59)
--- NOTE | 2018-12-14 01:54 | EDM.PDOC ---
ED HPI GENERAL MEDICAL PROBLEM - General Chief Complaint: Bite:Animal, Insect Stated Complaint: BIT BY A BAT Time Seen by Provider: 12/13/18 23:19 Source of Information: Reports: Patient History Limitations: Reports: No Limitations - History of Present Illness INITIAL COMMENTS - FREE TEXT/NARRATIVE: This gentleman was at home when his found a bat in their house. His was fully awake and says that she was not bitten by the back. Her caught the bat with his hands and was bitten on the right thumb and scratched on the dorsum of the right hand the area between the first and second metacarpals. He was able to kill the bat and brought it to the emergency department in a plastic bag. He's never been immunized for rabies before. Nobody else was exposed to the bat Treatments MID LEVEL GAME DESIGNER: Reports: Other (see below) Other Treatments MID LEVEL GAME DESIGNER: none Right Thumb Pain Score (Numeric/FACES): 8 - Related Data Allergies Allergy/AdvReac Type Severity Reaction Status Date / Time No Known Allergies Allergy Verified 12/13/18 23:09 Home Meds: Home Meds Citalopram [Citalopram HBr] 40 mg PO DAILY 05/24/18 [History] Zolpidem Tartrate 10 mg PO BEDTIME PRN 05/24/18 [History] Divalproex Sodium [Divalproex Sodium ER] 500 mg PO DAILY 05/31/18 [History] ALPRAZolam [Alprazolam] 1 mg PO BEDTIME 12/13/18 [History] Cholecalciferol (Vitamin D3) [Vitamin D3] 5,000 units PO DAILY 12/13/18 [History ] Omeprazole 40 mg PO DAILY 12/13/18 [History] PARoxetine [Paxil] 40 mg PO DAILY 12/13/18 [History] tiZANidine [Zanaflex] 4 mg PO ASDIRECTED 12/13/18 [History] Past Medical History Cardiovascular History: Reports: Heart Murmur Gastrointestinal History: Reports: Chronic Diarrhea, GERD Musculoskeletal History: Reports: Other (See Below) Other Musculoskeletal History: scolosis Neurological History: Reports: Concussion Psychiatric History: Reports: Anxiety, Depression, Mood Swings, Panic Attack Endocrine/Metabolic History: Reports: Obesity/BMI 30+ Hematologic History: Reports: Other (See Below) Other Hematologic History: vit d Dermatologic History: Reports: Other (See Below) Other Dermatologic History: tiea versicolor - Infectious Disease History Infectious Disease History: Reports: None - Past Surgical History Head Surgeries/Procedures: Reports: None GI Surgical History: Reports: Colonoscopy, EGD Social & Family History - Family History Family Medical History: Noncontributory - Tobacco Use Smoking Status *Q: Unknown Ever Smoked - Caffeine Use Caffeine Use: Reports: Energy Drinks, Soda - Recreational Drug Use Recreational Drug Use: No ED ROS GENERAL - Review of Systems Review Of Systems: ROS reveals no pertinent complaints other than HPI. ED EXAM, ANIMAL BITE - Physical Exam Exam: See Below Exam Limited By: No Limitations General Appearance: Alert, Mild Distress Extremities: Other (There are 2 very faint bite santoro to the pad of the right thumb it's the medial or ulnar side of the thumb. These are just very tiny red santoro about 1/4 mm in diameter. There is a faint scratch to the dorsum of the hand in the area between the first and second metacarpals. There were no other bite santoro) Course - Vital Signs Last Recorded V/S: Last Vital Signs Temp 35.8 C 12/13/18 23:06 Pulse 87 12/13/18 23:06 Resp 14 12/13/18 23:06 BP 131/56 L 12/13/18 23:06 Pulse Ox 97 12/13/18 23:06 - Orders/Labs/Meds Orders: Active Orders 24 hr Category Date Time Status Vaccines to be Administered [RC] PER UNIT ROUTINE Care 12/13/18 23:59 Active Meds: Medications Discontinued Medications Generic Name Dose Route Start Last Admin Trade Name Libradoq PRN Reason Stop Dose Admin Hydrocodone Bitart/Acetaminophen 2 tab 12/13/18 23:51 12/13/18 23:57 [place]lock 325-5 Mg PO 12/13/18 23:52 2 tab ONETIME ONE Administration Rabies Immune Globulin 2,000 unit 12/13/18 23:59 12/14/18 01:24 Imogam Rabies-Ht IM 12/14/18 00:00 2,000 unit .ONCE ONE Administration Rabies Vaccine 2.5 unit 12/13/18 23:59 12/14/18 01:22 Rabavert IM 12/14/18 00:00 2.5 unit .ONCE ONE Administration - Re-Assessments/Exams Free Text/Narrative Re-Assessment/Exam: 12/14/18 02:04 I spoke with the rabies specialist on-call a MS Liza Noe and she said that with bite on the hand they would do the testing on Sunday of the bat carcass she gave instructions to put it in the refrigerator and so forth. She didn't feel that the rabies immunoglobulin and vaccine were necessarily indicated right now. However at the administration of rabies immune globulin and the first dose of vaccine could be considered if the patient wanted to. I presented this to the patient that the rabies immunoglobulin and vaccine didn't necessarily have to be administered tonight that they could wait until the test was done on Sunday. They would have to deliver the bat to the [facility] in [place]. The patient decided that he wanted to go ahead with the rabies immunoglobulin injection. He is aware that has to be injected part of it around the wound and then the rest given intramuscularly. He's aware that he further more would need the subsequent doses of vaccine. He's aware that there possibly could be some problems with insurance since the bat was not being tested before administration of the immunoglobulin and vaccine. He wanted to go ahead and proceed with the injections tonight. The patient received a total of about 1.5 mL of rabies immune globulin injected into the area of the thumb around the injection site. This caused the patient considerable pain which appeared to me to be similar to what a person would experience with the injection of lidocaine into a finger. The rest of the dose or 2.5 mL was then injected to the dorsum of the hand around the scratched area. The patient then received the remaining doses of rabies immune globulin given as an IM injection by the nurse either 2 or 3 separate injections. The total dose of rabies immune globulin was 2000 units. This was the recommended 20 units per kilo. He also received the 2.5 mL dose of rabies vaccine. He received 2 Narco 5/325 tablets for pain in his thumb. The patient was offered a dose of Augmentin tonight and then he should get a prescription filled tomorrow but he declined starting the medication in the ER. He declined getting the medication out of our [employer]eds machine since the number dispensed would be double what he needs 12/14/18 02:11 Departure - Departure Time of Disposition: 01:49 Disposition: Home, Self-Care 01 Condition: Fair Clinical Impression: Bat bite of finger - Discharge Information Instructions: Animal Bite, [id number] Referrals: Mini Quesada MD [Primary Care Provider] - Forms: ED Department Discharge Additional Instructions: Use Narco 5/325 one or 2 tablets every 4 hours as needed for pain. This medication can cause sedation and impair driving and can be addicting if abused. He will need repeat doses of rabies vaccine on December 17 December 21 and December 28. If you wish to have the bat tested for rabies you can take it to the [facility] in [place] at the address given. The only reason for having the bat tested is that if the test comes back negative then you would not need the additional 3 doses of the vaccine. If you plan to get the 3 doses of vaccine then there is not really any need to have the bat tested. I am unable to tell you what your insurance company will or will not cover. The rabies vaccine is expensive. Additionally take the antibiotic Augmentin 875 mg twice daily for 5 days. This is the standard antibiotic that is used for animal bites and has nothing to do with rabies. It sometimes causes diarrhea. - My Orders Last 24 Hours: My Active Orders 12/13/18 23:59 Vaccines to be Administered [RC] PER UNIT ROUTINE - Assessment/Plan Last 24 Hours: My Active Orders 12/13/18 23:59 Vaccines to be Administered [RC] PER UNIT ROUTINE
== END 2018-12-14 02:00 | disposition home or self-care (01) ==
LOC: JP.ED 22:50
DX: S61.051A Open bite of right thumb without damage to nail, initial encounter (principal); Z23 Encounter for immunization; F41.9 Anxiety disorder, unspecified; F32.9 Major depressive disorder, single episode, unspecified; K21.9 Gastro-esophageal reflux disease without esophagitis; Z79.899 Other long term (current) drug therapy; W55.81XA Bitten by other mammals, initial encounter
CPT/HCPCS: 90376; 90471; 90472; 90675; 99283; A9270

== ENCOUNTER 2019-08-01 11:10 | Emergency (ER) | payer MEDICAID ==
[2019-08-01 11:24] VITALS: BP 144/88; PULSE 109
[2019-08-01] MEDS ORDERED: Bacitracin Oint 1 GM U/D Packet TOP ONE (11:26)
--- NOTE | 2019-08-01 12:17 | EDM.PDOC ---
ED HPI GENERAL MEDICAL PROBLEM - General Chief Complaint: Laceration Stated Complaint: CUT LEFT INDEX FINGER Time Seen by Provider: 08/01/19 11:30 Source of Information: Reports: Patient History Limitations: Reports: No Limitations - History of Present Illness INITIAL COMMENTS - FREE TEXT/NARRATIVE: 29-year-old male accidentally cut the radial aspect of his index finger on the nondominant left hand just prior to arrival, with a sharp knife while cutting meat. His tetanus is current. The distal aspect of the index finger is numb but he has good range of motion. Onset: Sudden Duration: Hour(s): (Within the last hour) Location: Reports: Upper Extremity, Left Associated Symptoms: Reports: Other (Distal numbness to the finger, no other symptoms) Left Hand Pain Score (Numeric/FACES): 5 - Related Data Allergies Allergy/AdvReac Type Severity Reaction Status Date / Time No Known Allergies Allergy Verified 12/13/18 23:09 Home Meds: Home Meds Citalopram [Citalopram HBr] 40 mg PO DAILY 05/24/18 [History] Zolpidem Tartrate 10 mg PO BEDTIME PRN 05/24/18 [History] Divalproex Sodium [Divalproex Sodium ER] 500 mg PO DAILY 05/31/18 [History] ALPRAZolam [Alprazolam] 1 mg PO BEDTIME 12/13/18 [History] Cholecalciferol (Vitamin D3) [Vitamin D3] 5,000 units PO DAILY 12/13/18 [History ] Omeprazole 40 mg PO DAILY 12/13/18 [History] PARoxetine [Paxil] 40 mg PO DAILY 12/13/18 [History] tiZANidine [Zanaflex] 4 mg PO ASDIRECTED 12/13/18 [History] Past Medical History Cardiovascular History: Reports: Heart Murmur Gastrointestinal History: Reports: Chronic Diarrhea, GERD Musculoskeletal History: Reports: Other (See Below) Other Musculoskeletal History: scolosis Neurological History: Reports: Concussion Psychiatric History: Reports: Anxiety, Depression, Mood Swings, Panic Attack Endocrine/Metabolic History: Reports: Obesity/BMI 30+ Hematologic History: Reports: Other (See Below) Other Hematologic History: vit d Dermatologic History: Reports: Other (See Below) Other Dermatologic History: tiea versicolor - Infectious Disease History Infectious Disease History: Reports: None - Past Surgical History Head Surgeries/Procedures: Reports: None GI Surgical History: Reports: Colonoscopy, EGD Social & Family History - Family History Family Medical History: Noncontributory - Tobacco Use Smoking Status *Q: Never Smoker Second Hand Smoke Exposure: No - Caffeine Use Caffeine Use: Reports: Soda - Alcohol Use Days Per Week of Alcohol Use: 0 - Recreational Drug Use Recreational Drug Use: Yes Drug Use in Last 12 Months: Yes Recreational Drug Type: Reports: Marijuana/Hashish Recreational Drug Use Frequency: Socially ED ROS GENERAL - Review of Systems Review Of Systems: See Below Constitutional: Denies: Fever, Chills HEENT: Reports: No Symptoms Respiratory: Denies: Shortness of Breath Cardiovascular: Denies: Chest Pain GI/Abdominal: Denies: Nausea, Vomiting Musculoskeletal: Reports: Other (Dealing with some chronic right shoulder discomfort) Neurological: Reports: Paresthesia (Radial aspect of the index finger distal to the laceration) ED EXAM, SKIN/RASH Exam: See Below Exam Limited By: No Limitations General Appearance: Alert, No Apparent Distress Head: Atraumatic Respiratory/Chest: No Respiratory Distress Extremities: Other (Exam is otherwise limited to the left hand. The patient has a 3 cm laceration along the lateral aspect of the index finger, radial side just distal to the MP joint. There is distal numbness to the side of the finger but the range of motion is intact) Course - Vital Signs Last Recorded V/S: Last Vital Signs Temp 97.7 F 08/01/19 11:45 Pulse 109 H 08/01/19 11:45 Resp 18 08/01/19 11:45 BP 144/88 H 08/01/19 11:45 Pulse Ox 96 08/01/19 11:45 - Orders/Labs/Meds Meds: Medications Discontinued Medications Generic Name Dose Route Start Last Admin Trade Name Freq PRN Reason Stop Dose Admin Bacitracin 1 dose 08/01/19 11:26 08/01/19 11:41 Bacitracin Oint 1 Gm TOP 08/01/19 11:27 1 dose ONETIME ONE Administration Lidocaine HCl 5 ml 08/01/19 11:26 08/01/19 11:41 Xylocaine-Mpf 1% INJECT 08/01/19 11:27 5 ml ONETIME ONE Administration - Re-Assessments/Exams Free Text/Narrative Re-Assessment/Exam: 11/22/19 12:15 The laceration was infiltrated with 1% lidocaine and then examined more thoroughly. There did not appear to be any tendon involvement but the laceration was certainly deep enough to cut the cutaneous nerves. It was washed thoroughly with saline. 7 4-0 Ethilon sutures were used to then close the laceration. Topical bacitracin and a Band-Aid was applied. Phone consultation with hand surgery was done in [place], digital nerve repair is generally not recommended for isolated injuries. Patient will return in 9 days to get sutures removed, sooner if concerns of infection or not healing satisfactorily. Departure - Departure Time of Disposition: 12:25 Disposition: Home, Self-Care 01 Clinical Impression: Laceration of left index finger Qualifiers: Encounter type: initial encounter Damage to nail status: without damage Foreign body presence: without foreign body Qualified Code(s): S61.211A - Laceration without foreign body of left index finger without damage to nail, initial encounter - Discharge Information Instructions: Laceration Care, Adult Referrals: Mini Quesada MD [Primary Care Provider] - Forms: ED Department Discharge Care Plan Goals: Keep wound covered and clean while healing. Topical bacitracin under the Band- Aid may be beneficial. Recheck on Sunday, August 11, for suture removal. Return sooner if concerns of infection or not healing satisfactorily.
== END 2019-08-01 12:25 | disposition home or self-care (01) ==
LOC: JP.ED 11:10
DX: S61.211A Laceration without foreign body of left index finger without damage to nail, initial encounter (principal); F41.9 Anxiety disorder, unspecified; E66.9 Obesity, unspecified; K21.9 Gastro-esophageal reflux disease without esophagitis; F32.9 Major depressive disorder, single episode, unspecified; Z68.32 Body mass index [BMI] 32.0-32.9, adult; Z79.899 Other long term (current) drug therapy; W26.0XXA Contact with knife, initial encounter; Y93.G9 Activity, other involving cooking and grilling
CPT/HCPCS: 12002; 99282; J2001

== ENCOUNTER 2019-09-07 08:35 | Emergency (ER) | payer MEDICAID ==
[2019-09-07] MEDS ORDERED: Lactated Ringers 1,000 ML IV ONE (09:00)
[2019-09-07] MEDS ORDERED: Ondansetron 4 MG Tab.DIS PO ONE (09:00)
[2019-09-07] MEDS ORDERED: Atropine/Diphenoxylate 0.025-2.5 MG Tab PO ONE (09:03)
[2019-09-07] MEDS ORDERED: Acetaminophen 500 MG Tab PO ONE (09:03)
--- NOTE | 2019-09-07 09:08 | EDM.PDOC ---
ED HPI GENERAL MEDICAL PROBLEM - General Chief Complaint: Gastrointestinal Problem Stated Complaint: [facility] Time Seen by Provider: 09/07/19 08:55 Source of Information: Reports: Patient, EMS, Old Records, RN History Limitations: Reports: No Limitations - History of Present Illness INITIAL COMMENTS - FREE TEXT/NARRATIVE: 29 yo male here via EMS from his home for nausea, vomiting and diarrhea that began about 0300h today. No fever. Has cramping and diaphoresis. Is dizzy with standing. No bleeding. Onset: Today, Sudden Onset Date: 09/07/19 Onset Time: 03:00 Duration: Hour(s):, Constant Location: Reports: Abdomen, Generalized Quality: Reports: Other (cramping) Severity: Moderate Improves with: Reports: None Worsens with: Reports: None Context: Reports: Other (see HPI, uncertain exposures) Associated Symptoms: Reports: Diaphoresis, Malaise, Nausea/Vomiting. Denies: Fever/Chills, Rash Treatments [employer]ER LOCOMOTIVE CRANE: Reports: Other (see below) (none) - Related Data Allergies Allergy/AdvReac Type Severity Reaction Status Date / Time No Known Allergies Allergy Verified 12/13/18 23:09 Home Meds: Home Meds Zolpidem Tartrate 10 mg PO BEDTIME PRN 05/24/18 [History] Cholecalciferol (Vitamin D3) [Vitamin D3] 5,000 units PO DAILY 12/13/18 [History ] Omeprazole 40 mg PO DAILY 12/13/18 [History] Baclofen 10 mg PO TID PRN 09/07/19 [History] Gabapentin [Neurontin] 400 mg PO QID PRN 09/07/19 [History] Ondansetron [Zofran ODT] 4 mg PO Q6H PRN #7 tab.dis 09/07/19 [Rx] Past Medical History Cardiovascular History: Reports: Heart Murmur Gastrointestinal History: Reports: Chronic Diarrhea, GERD Musculoskeletal History: Reports: Other (See Below) Other Musculoskeletal History: scolosis Neurological History: Reports: Concussion Psychiatric History: Reports: Anxiety, Depression, Mood Swings, Panic Attack Endocrine/Metabolic History: Reports: Obesity/BMI 30+ Hematologic History: Reports: Other (See Below) Other Hematologic History: vit d Dermatologic History: Reports: Other (See Below) Other Dermatologic History: tiea versicolor - Infectious Disease History Infectious Disease History: Reports: None - Past Surgical History Head Surgeries/Procedures: Reports: None GI Surgical History: Reports: Colonoscopy, EGD Social & Family History - Family History Family Medical History: Noncontributory - Caffeine Use Caffeine Use: Reports: Soda ED ROS GENERAL - Review of Systems Review Of Systems: See Below Constitutional: Reports: Malaise, Weakness, Diaphoresis HEENT: Reports: No Symptoms Respiratory: Reports: No Symptoms Cardiovascular: Reports: Lightheadedness Endocrine: Reports: No Symptoms GI/Abdominal: Reports: Abdominal Pain (some cramping), Diarrhea, Nausea, Vomiting. Denies: Black Stool, Bloody Stool, Constipation, Hematemesis, Hematochezia : Reports: No Symptoms Musculoskeletal: Reports: No Symptoms Skin: Reports: Diaphoresis Neurological: Reports: No Symptoms Psychiatric: Reports: No Symptoms ED EXAM, GI/ABD - Physical Exam Exam: See Below Exam Limited By: No Limitations General Appearance: Alert, WD/WN, Mild Distress Eyes: Bilateral: Normal Appearance Ears: Normal External Exam, Normal Canal, Hearing Grossly Normal Nose: Normal Inspection, No Blood Throat/Mouth: Normal Inspection, Normal Lips, Normal Oropharynx, Normal Voice, No Airway Compromise Head: Atraumatic, Normocephalic Neck: Normal Inspection Respiratory/Chest: No Respiratory Distress, Lungs Clear, Normal Breath Sounds, No Accessory Muscle Use Cardiovascular: Regular Rate, Rhythm, No Edema GI/Abdominal Exam: Normal Bowel Sounds, Soft, No Distention, Tender (mild, diffuse). No: Non-Tender, Distended Back Exam: Normal Inspection. No: CVA Tenderness (R), CVA Tenderness (L) Extremities: Normal Inspection, Normal Range of Motion, Non-Tender, No Pedal Edema Neurological: Alert, Oriented, CN II-XII Intact, Normal Cognition, No Motor/ Sensory Deficits Psychiatric: Normal Affect, Normal Mood Skin Exam: Warm, Intact, Normal Color, No Rash, Diaphoretic Course - Vital Signs Last Recorded V/S: Last Vital Signs Temp 35.6 C 09/07/19 08:55 Pulse 95 09/07/19 10:41 Resp 18 09/07/19 08:55 BP 130/61 09/07/19 10:41 Pulse Ox 100 09/07/19 08:55 - Orders/Labs/Meds Orders: Active Orders 24 hr Category Date Time Status NS + KCl 20mEq/L [Normal Saline with 20 mEq KCl] 1,000 Med 09/07/19 10:30 Active ml IV ASDIRECTED Medication Orders Potassium Chloride/Sodium Chloride (Normal Saline With 20 Meq Kcl) 1,000 mls @ 1,000 mls/hr IV ASDIRECTED BRIAN Last Admin: 09/07/19 10:33 Dose: 1,000 mls/hr Labs: Laboratory Tests 09/07/19 09/07/19 Range/Units 09:25 09:30 Sodium 137 L (140-148) mmol/L Potassium 3.1 L (3.6-5.2) mmol/L Chloride 100 (100-108) mmol/L Carbon Dioxide 15 L (21-32) mmol/L Anion Gap 25.1 H (5.0-14.0) mmol/L BUN 16 (7-18) mg/dL Creatinine 1.3 (0.8-1.3) mg/dL Est Cr Clr Drug Dosing 93.68 mL/min Estimated GFR (MDRD) > 60 (>60) Glucose 177 H (74-106) mg/dL Calcium 10.0 (8.5-10.1) mg/dL Magnesium 1.6 L (1.8-2.4) mg/dL Meds: Medications Generic Name Dose Route Start Last Admin Trade Name Freq PRN Reason Stop Dose Admin Potassium Chloride/Sodium Chloride 1,000 mls @ 1,000 mls/hr 09/07/19 10:30 10:33 Normal Saline With 20 Meq Kcl IV 1,000 mls/hr ASDIRECTED BRIAN Administration Discontinued Medications Generic Name Dose Route Start Last Admin Trade Name Freq PRN Reason Stop Dose Admin Acetaminophen 1,000 mg 09/07/19 09:03 09/07/19 09:30 Tylenol Extra Strength PO 09/07/19 09:04 1,000 mg ONETIME ONE Administration Diphenoxylate HCl/Atropine 2 tab 09/07/19 09:03 09/07/19 09:30 Lomotil 0.025-2.5 Mg PO 09/07/19 09:04 2 tab ONETIME ONE Administration Lactated Ringer's 1,000 mls @ 1,000 mls/hr 09/07/19 09:00 09/07/19 09:30 Ringers, Lactated IV 09/07/19 09:59 1,000 mls/hr BOLUS ONE Administration Ondansetron HCl 4 mg 09/07/19 09:00 09/07/19 09:05 Zofran Odt PO 09/07/19 09:01 4 mg ONETIME ONE Administration Ondansetron HCl 4 mg 09/07/19 09:36 09/07/19 09:39 Zofran IVPUSH 09/07/19 09:37 4 mg ONETIME ONE Administration Potassium Chloride 40 meq 09/07/19 09:58 09/07/19 10:20 Potassium Chloride PO 09/07/19 09:59 40 meq ONETIME ONE Administration Departure - Departure Time of Disposition: 11:40 Disposition: Home, Self-Care 01 Condition: Fair Clinical Impression: Viral gastroenteritis, Hypokalemia - Discharge Information *PRESCRIPTION DRUG MONITORING PROGRAM REVIEWED*: No *COPY OF PRESCRIPTION DRUG MONITORING REPORT IN PATIENT J LUIS: No Prescriptions: Ondansetron [Zofran ODT] 4 mg PO Q6H PRN #7 tab.dis PRN Reason: Nausea Instructions: Viral Gastroenteritis, Adult, [id number] Referrals: PCP,None [Primary Care Provider] - Forms: ED Department Discharge Additional Instructions: Take Zofran every 6 hrs as needed for nausea control. Drink Gatorade or other sport drink today until you are done with your vomiting for at least 8 hrs, then advance diet as tolerated. Use loperamide per package instructions for diarrhea control. Rest. Get some bananas to help replace your low potassium level. Recheck with your doctor as needed. Sepsis Event Note - Evaluation Sepsis Screening Result: No Definite Risk - Focused Exam Vital Signs: Vital Signs Temp Pulse Resp BP Pulse Ox 09/07/19 10:41 95 130/61 09/07/19 08:55 35.6 C 98 18 138/71 100 Date Exam was Performed: 09/07/19 Time Exam was Performed: 11:34 - My Orders Last 24 Hours: My Active Orders 09/07/19 10:30 NS + KCl 20mEq/L [Normal Saline with 20 mEq KCl] 1,000 ml IV ASDIRECTED - Assessment/Plan Last 24 Hours: My Active Orders 09/07/19 10:30 NS + KCl 20mEq/L [Normal Saline with 20 mEq KCl] 1,000 ml IV ASDIRECTED
[2019-09-07] MEDS ORDERED: Ondansetron 4 MG/2 ML SDV IVPUSH ONE (09:36)
[2019-09-07] MEDS ORDERED: Potassium Chloride 10 MEQ Cap.ER PO ONE (09:58)
[2019-09-07] MEDS ORDERED: NS + KCl 20mEq/L 1,000 ML IV SCH (10:30)
[2019-09-07 10:42] VITALS: BP 130/61; PULSE 95
== END 2019-09-07 12:08 | disposition home or self-care (01) ==
LOC: JP.ED 08:35
DX: A08.4 Viral intestinal infection, unspecified (principal); E87.6 Hypokalemia; F32.9 Major depressive disorder, single episode, unspecified; F41.0 Panic disorder [episodic paroxysmal anxiety]; K21.9 Gastro-esophageal reflux disease without esophagitis; E66.9 Obesity, unspecified; Z68.33 Body mass index [BMI] 33.0-33.9, adult; Z79.899 Other long term (current) drug therapy
CPT/HCPCS: 36415; 80048; 83735; 96361; 96365; 96375; 99284-25; A9270-GY; J2405; J3480; J7120

== ENCOUNTER 2019-11-07 08:14 | Emergency (ER) | payer MEDICAID ==
[2019-11-07 08:36] VITALS: BP 143/91; PULSE 105
[2019-11-07] MEDS ORDERED: Prochlorperazine 10 MG/2 ML SDV IVPUSH ONE (08:37)
--- NOTE | 2019-11-07 08:39 | EDM.PDOC ---
ED HPI GENERAL MEDICAL PROBLEM - General Chief Complaint: Gastrointestinal Problem Stated Complaint: VOMITING WAS AT CLINIC YESTERDAY Time Seen by Provider: 11/07/19 08:39 Source of Information: Reports: Patient History Limitations: Reports: No Limitations - History of Present Illness INITIAL COMMENTS - FREE TEXT/NARRATIVE: pt has been vomiting since sunday. He has not held anything down. He does smoke marjauna on a daily basis. Onset: Other ( started on sunday. ) Duration: Hour(s): Location: Reports: Abdomen Associated Symptoms: Reports: Nausea/Vomiting, Weakness abdominal Pain Score (Numeric/FACES): 2 - Related Data Allergies Allergy/AdvReac Type Severity Reaction Status Date / Time No Known Allergies Allergy Verified 11/07/19 08:39 Home Meds: Home Meds Zolpidem Tartrate 10 mg PO BEDTIME PRN 05/24/18 [History] Cholecalciferol (Vitamin D3) [Vitamin D3] 5,000 units PO DAILY 12/13/18 [History ] Omeprazole 40 mg PO DAILY 12/13/18 [History] Gabapentin [Neurontin] 400 mg PO QID PRN 09/07/19 [History] Ondansetron [Zofran ODT] 4 mg PO Q6H PRN #7 tab.dis 09/07/19 [Rx] Venlafaxine [Effexor] 100 mg PO BEDTIME 11/07/19 [History] Venlafaxine [Effexor] 200 mg PO DAILY 11/07/19 [History] Past Medical History Cardiovascular History: Reports: Heart Murmur Gastrointestinal History: Reports: Chronic Diarrhea, GERD Musculoskeletal History: Reports: Other (See Below) Other Musculoskeletal History: scolosis Neurological History: Reports: Concussion Psychiatric History: Reports: Anxiety, Depression, Mood Swings, Panic Attack Endocrine/Metabolic History: Reports: Obesity/BMI 30+ Hematologic History: Reports: Other (See Below) Other Hematologic History: vit d Dermatologic History: Reports: Other (See Below) Other Dermatologic History: tiea versicolor - Infectious Disease History Infectious Disease History: Reports: None - Past Surgical History Head Surgeries/Procedures: Reports: None GI Surgical History: Reports: Colonoscopy, EGD Social & Family History - Family History Family Medical History: Noncontributory - Caffeine Use Caffeine Use: Reports: Soda ED ROS GENERAL - Review of Systems Review Of Systems: See Below Constitutional: Reports: Weakness, Fatigue, Other (pt feels hot all of the time. ) HEENT: Reports: No Symptoms Respiratory: Reports: No Symptoms Cardiovascular: Reports: No Symptoms Endocrine: Reports: No Symptoms GI/Abdominal: Reports: Nausea, Vomiting, Other ( tender abdoman. ) : Reports: No Symptoms Musculoskeletal: Reports: No Symptoms Skin: Reports: No Symptoms ED EXAM, GI/ABD - Physical Exam Exam: See Below Text/Narrative:: pt arrived with a history of not keeping anything down since Sunday. he was at the clinic yesterday and tafoya had a neg influ. He was given zoforan but that was not working. Exam Limited By: No Limitations General Appearance: Alert, Anxious, Moderate Distress Ears: Normal TMs Nose: Normal Inspection Throat/Mouth: Normal Inspection Head: Atraumatic Neck: Normal Inspection Respiratory/Chest: No Respiratory Distress Cardiovascular: Regular Rate, Rhythm GI/Abdominal Exam: Other ( diffuse tenderness. ) (Male) Exam: Deferred Rectal (Males) Exam: Deferred Back Exam: Normal Inspection Extremities: Normal Inspection Neurological: Alert, Oriented, Normal Cognition Psychiatric: Anxious Course - Vital Signs Last Recorded V/S: Last Vital Signs Temp 35.5 C L 11/07/19 08:38 Pulse 105 H 11/07/19 08:38 Resp 16 11/07/19 08:38 BP 143/91 H 11/07/19 08:38 Pulse Ox 98 11/07/19 08:38 - Orders/Labs/Meds Orders: Active Orders 24 hr Category Date Time Status Sodium Chloride 0.9% [Normal Saline] 1,000 ml Med 11/07/19 08:45 Active IV ASDIRECTED Sodium Chloride 0.9% [Normal Saline] 1,000 ml Med 11/07/19 09:45 Active IV ASDIRECTED Sodium Chloride 0.9% [Normal Saline] 1,000 ml Med 11/07/19 10:45 Active IV ASDIRECTED Medication Orders Sodium Chloride (Normal Saline) 1,000 mls @ 999 mls/hr IV ASDIRECTED BRIAN Last Admin: 11/07/19 08:52 Dose: 999 mls/hr Sodium Chloride (Normal Saline) 1,000 mls @ 999 mls/hr IV ASDIRECTED BRIAN Sodium Chloride (Normal Saline) 1,000 mls @ 250 mls/hr IV ASDIRECTED BRIAN Labs: Laboratory Tests 11/07/19 11/07/19 11/07/19 Range/Units 08:51 08:51 10:07 WBC 6.7 (4.5-11.0) K/uL RBC 5.70 (4.30-5.90) M/uL Hgb 17.6 H (12.0-15.0) g/dL Hct 48.9 (40.0-54.0) % MCV 86 (80-98) fL MCH 31 (27-31) pg MCHC 36 (32-36) % Plt Count 363 (150-400) K/uL Neut % (Auto) 56 (36-66) % Lymph % (Auto) 33 (24-44) % [place] % (Auto) 11 H (2-6) % Eos % (Auto) 0 L (2-4) % Baso % (Auto) 1 (0-1) % Sodium 139 L (140-148) mmol/L Potassium 3.5 L (3.6-5.2) mmol/L Chloride 99 L (100-108) mmol/L Carbon Dioxide 23 (21-32) mmol/L Anion Gap 20.5 H (5.0-14.0) mmol/L BUN 13 (7-18) mg/dL Creatinine 1.3 (0.8-1.3) mg/dL Est Cr Clr Drug Dosing 93.68 mL/min Estimated GFR (MDRD) > 60 (>60) Glucose 118 H (74-106) mg/dL Calcium 9.7 (8.5-10.1) mg/dL Total Bilirubin 2.0 H D (0.2-1.0) mg/dL AST 40 H D (15-37) U/L ALT 90 H (12-78) U/L Alkaline Phosphatase 100 (46-116) U/L Total Protein 9.4 H (6.4-8.2) g/dL Albumin 5.0 (3.4-5.0) g/dL Globulin 4.4 H (2.3-3.5) g/dL Albumin/Globulin Ratio 1.1 L (1.2-2.2) Urine Color Yellow (YELLOW) Urine Appearance Slightly cloudy A (CLEAR) Urine pH 6.0 (5.0-8.0) Ur Specific [place] 1.025 (1.008-1.030) Urine Protein 100 H (NEGATIVE) mg/dL Urine Glucose (UA) Negative (NEGATIVE) mg/dL Urine Ketones 80 H (NEGATIVE) mg/dL Urine Occult Blood Trace-intact H (NEGATIVE) Urine Nitrite Negative (NEGATIVE) Urine Bilirubin Small H (NEGATIVE) Urine Urobilinogen 0.2 (0.2-1.0) EU/dL Ur Leukocyte Esterase Negative (NEGATIVE) Urine RBC 0-5 (0-5) Urine WBC 0-5 (0-5) Ur Epithelial Cells Not seen Amorphous Sediment Moderate Urine Bacteria Rare Urine Mucus Many Meds: Medications Generic Name Dose Route Start Last Admin Trade Name Freq PRN Reason Stop Dose Admin Sodium Chloride 1,000 mls @ 999 mls/hr 11/07/19 08:45 11/07/19 08:52 Normal Saline IV 999 mls/hr ASDIRECTED BRIAN Administration Sodium Chloride 1,000 mls @ 999 mls/hr 11/07/19 09:45 Normal Saline IV ASDIRECTED BRIAN Sodium Chloride 1,000 mls @ 250 mls/hr 11/07/19 10:45 Normal Saline IV ASDIRECTED BRIAN Discontinued Medications Generic Name Dose Route Start Last Admin Trade Name Freq PRN Reason Stop Dose Admin Lorazepam 0.5 mg 11/07/19 09:27 11/07/19 09:38 Ativan IVPUSH 11/07/19 09:28 0.5 mg ONETIME ONE Administration Prochlorperazine Edisylate 10 mg 11/07/19 08:37 11/07/19 08:51 Compazine IVPUSH 11/07/19 08:38 10 mg ONETIME ONE Administration - Re-Assessments/Exams Free Text/Narrative Re-Assessment/Exam: 11/07/19 11:31 pt was definitely dehydrated and he was hydrated with 2 liters of fluid. He was given compazine 10 mg iv. His nausea did improve with that. He had a stool for clost diff which was neg. He was able to hold water down. He had elevated liver enzymes and a us of the Gb was done. The Us was normal. Pt had a normal wbc. His urine was clear. He did improve and was discharged. 11/07/19 11:33 Departure - Departure Time of Disposition: 11:18 Disposition: Home, Self-Care 01 Condition: Fair Clinical Impression: Dehydration, Viral illness, Elevated liver enzymes - Discharge Information Instructions: Liver Function Tests, Dehydration, Adult, [id number], Viral Illness, Adult Referrals: Mini Quesada MD [Primary Care Provider] - Forms: ED Department Discharge Care Plan Goals: push fluids, lite foods, compazine 10 mg q6h prn for nausea, slow down on the etoh intake--elevated liver enzymes, rtc if increases symptoms. Sepsis Event Note - Evaluation Sepsis Screening Result: Possible Sepsis Risk - Focused Exam Vital Signs: Vital Signs Temp Pulse Resp BP Pulse Ox 11/07/19 08:38 35.5 C L 105 H 16 143/91 H 98 11/07/19 08:35 35.5 C L 105 H 16 143/91 H 98 Date Exam was Performed: 11/07/19 Time Exam was Performed: 11:28 - My Orders Last 24 Hours: My Active Orders 11/07/19 08:45 Sodium Chloride 0.9% [Normal Saline] 1,000 ml IV ASDIRECTED 11/07/19 09:45 Sodium Chloride 0.9% [Normal Saline] 1,000 ml IV ASDIRECTED 11/07/19 10:45 Sodium Chloride 0.9% [Normal Saline] 1,000 ml IV ASDIRECTED - Assessment/Plan Last 24 Hours: My Active Orders 11/07/19 08:45 Sodium Chloride 0.9% [Normal Saline] 1,000 ml IV ASDIRECTED 11/07/19 09:45 Sodium Chloride 0.9% [Normal Saline] 1,000 ml IV ASDIRECTED 11/07/19 10:45 Sodium Chloride 0.9% [Normal Saline] 1,000 ml IV ASDIRECTED
[2019-11-07] MEDS ORDERED: Sodium Chloride 0.9% 1,000 ML IV SCH ×3 (08:45→10:45)
[2019-11-07] MEDS ORDERED: LORazepam 2 MG/ML SDV IVPUSH ONE (09:27)
--- NOTE | 2019-11-07 10:29 | US ---
Abdomen Ltd CLINICAL HISTORY: Elevated liver enzymes, vomiting COMPARISON: CT abdomen 10/14/2019. FINDINGS: The liver is free of mass or biliary dilatation. There is normal parenchymal echogenicity. Liver is normal size.The gallbladder has a normal appearance. The common duct measures 3 mm. The pancreas is partially obscured. Right kidney has a normal appearance.The aorta is not aneurysmal. The inferior vena cava is unremarkable. No free fluid is seen IMPRESSION: Essentially negative right upper quadrant ultrasound
== END 2019-11-07 11:34 | disposition home or self-care (01) ==
LOC: JP.ED 08:14
DX: E86.0 Dehydration (principal); B34.9 Viral infection, unspecified; R74.8 Abnormal levels of other serum enzymes; K21.9 Gastro-esophageal reflux disease without esophagitis; F41.9 Anxiety disorder, unspecified; F32.9 Major depressive disorder, single episode, unspecified; E66.9 Obesity, unspecified; Z68.32 Body mass index [BMI] 32.0-32.9, adult; Z79.899 Other long term (current) drug therapy; M41.9 Scoliosis, unspecified
CPT/HCPCS: 36415; 76705; 80053; 81001; 85025; 87493; 96374; 96375; 99284; J0780; J2060; J7030